=== PATIENT | female | born 1990 | race African-American/Black ===

== ENCOUNTER 2022-11-22 15:52 | Outpatient (REF) | payer OTHER, SELFPAY ==
[2022-11-23 12:38] LABS: BV Int Neg Control Negative (Negative)
[2022-11-23 12:39] LABS: BV Int Pos Control Positive (Positive)
== END 2022-11-22 15:53 | disposition home or self-care (01) ==
LOC: HO.CHCLNP 15:52
PROVIDERS: Visit Provider General Practice
DX: N76.0 Acute vaginitis (principal)
CPT/HCPCS: 87480; 87510; 87660

== ENCOUNTER 2023-01-09 08:25 | Outpatient (REF) | payer OTHER, SELFPAY ==
[2023-01-09 15:00] LABS: Appearance Urine Turbid; Color Urine Dark Yellow; Glucose Urine UA Negative (Negative); Leukocyte Esterase Urine Negative (Negative); Nitrite Urine Negative (Negative); Specific Gravity - Urine >= 1.030 (1.005-1.025); UMIC TRIGGER UA YES; Urine Blood Small (1+) (Negative); Urine Ketones Trace mg/dL (Negative); Urine Protein 30 (1+) mg/dL (Neg-Trace)
[2023-01-09 15:12] LABS: Bacteria Urine 2+ (None Seen); Hyaline Casts Urine 0-2 /LPF (0-2); Squamous Epithelial Cell Urine >20 /HPF (0-2); WBC Urine 0-5 /HPF (0-5)
== END 2023-01-09 08:26 | disposition home or self-care (01) ==
LOC: HO.CHCLDS 08:25
PROVIDERS: Visit Provider General Practice
DX: N76.0 Acute vaginitis (principal)
CPT/HCPCS: 81001; 81003; 87086

== ENCOUNTER 2023-04-18 13:33 | Outpatient (REF) | payer OTHER, SELFPAY ==
[2023-04-18 17:13] LABS: CT PCR NOT DETECTED (Not Detect.); NG PCR NOT DETECTED (Not Detect.)
[2023-04-19 13:07] LABS: BV Int Neg Control Negative (Negative); BV Int Pos Control Positive (Positive)
== END 2023-04-18 13:34 | disposition home or self-care (01) ==
LOC: HO.CHCLNP 13:33
PROVIDERS: Visit Provider Pediatrics
DX: I10 Essential (primary) hypertension (principal); N76.0 Acute vaginitis
CPT/HCPCS: 0353U; 87480; 87510; 87660

== ENCOUNTER 2024-12-26 14:16 | Outpatient (REF) | payer MEDICAID, SELFPAY ==
[2024-12-26 16:00] LABS: Bacterial Vaginosis PCR NEGATIVE (Negative); Candida Group PCR DETECTED (Not Detect); Candida glab krusei PCR NOT DETECTED (Not Detect); Trichomonas vaginalis PCR NOT DETECTED (Not Detect)
[2024-12-26 17:57] LABS: CT PCR Urine NOT DETECTED (Not Detect.); NG PCR Urine NOT DETECTED (Not Detect.)
== END 2024-12-26 14:17 | disposition home or self-care (01) ==
LOC: HO.CHCLNP 14:16
PROVIDERS: Visit Provider Pediatrics
DX: I10 Essential (primary) hypertension (principal)
CPT/HCPCS: 81515; 87491; 87591

== ENCOUNTER 2025-03-10 16:18 | Outpatient (REF) | payer MEDICAID, SELFPAY ==
--- OUTSIDE RECORDS SUMMARY | 2025-03-10 11:30 | XMS_ITS | Encounter Summary ---
Author Organization [employer] Address [address] [address] [facility] [place] [address] Care Team Providers Care Environmental Journalist Name Role Phone Nedra Welch MD Primary Care Provider [phone] Reason for Visit * Reason Comments Vaginal Discharge Encounter Details Date Type Department Care Team ([facility] st Contact Info) Description 03/10/2025 11:30 AM EDT Office Visit [facility] [address] [place], [place] [phone] Tammy Lobo MD [address] [place] [address] Acute vaginitis (Primary Dx); Primary hypertension; Epigastric pain; Urine leukocytes Social History Tobacco Use Types Packs/Day Years Used Date Smoking Tobacco: Never Smokeless Tobacco: Never Depression Answer Date Recorded Patient Health Questionnaire-9 Score 5 09/12/2022 Housing Stability Answer Date Recorded What is your housing situation today? I have jordan mittal 03/12/[address] you li ve. Do you have problems with any of the following? None of the above 03/12/2023 Food Insecurity Answer Date Recorded Within the past 12 months, y ou worried that your food would run out before you got money to buy more: Never True 03/12/2023 Within the past 12 months,th e food you bought just didn't last and you didn't have enough money to get more: Never True Transportation Answer Date Recorded In the past 12 months, has l ack of transportation kept you from medical appts, meetings, work or from getting things needed for daily living? No 03/12/2023 Utilities Answer Date Recorded In the past 12 months, has t he electric, gas, oil or water ev-social threatened to shut off services in your home? No 03/12/2023 Depression Answer Date Recorded Patient Health Questionnaire-2 Score 2 09/12/2022 Comments No Sex and Gender Information Value Date Recorded Sex Assigned at Female 03/13/2022 10:36 AM EDT Legal Sex Female 10:36 AM EDT Gender Identity Female 03/13/2022 10:36 AM EDT Sexual Orientation Straight 03/13/2022 10 :36 AM EDT documented as of this encounter Last Filed Vital Signs Vital Sign Reading Time Taken Comments Blood Pressure 142/100 03/10/2025 11:57 AM EDT Pulse 70 03/10/2025 11:57 AM EDT Temperature 36.5 C (97.7 F) 03/10/2025 11:57 AM EDT Respiratory Rate 12 03/10/2025 11:57 AM EDT Oxygen Saturation - - Inhaled Oxygen Concentration - - Weight 92.1 kg (203 lb) 03/10/2025 11:57 AM EDT Height 172.7 cm (5' 8 ) 03/10/2025 11:57 AM EDT Body Mass Index 30.87 03/10/2025 11:57 AM EDT documented in this encounter Progress Notes * Tammy Lobo MD - 03/10/2025 11:30 AM EDT SUBJECTIVE: Stefano Hammond is a 35 y.o. year old female who presents for sick visit/vag discharge. Denies recentillness, injury, or hospitalization. This note was drafted using Ambient (AI) technology. The patient/patient's guardian has been informed and has consented to the use of this technology: Yes Acute Concerns: Vaginal Discharge and Itching Experienced thick, white, cottage cheese-like vaginal discharge with associated itching x1w. worsened with increased discharge and discomfort for the past 2 days. Menstrual Irregularity LMP started 03/08/2025, previous menstruation was on February 16, 2025, earlier than expected. This was the first period following an last month. No prior history of similar episodes in the past. Abdominal Pain Reported severe upper abdominal pain on and off x 3 days, symptoms last 1 to 2 hours, are relieved after taking Tylenol. Denies fever, chills, nausea, or vomiting associated with the pain. No postprandial pain. She is not taking any new medications at this time, she stopped taking MVIs and iron pills approximately 1 month ago. 4. Hypertension Previously prescribed Procardia for hypertension, Last took Procardia approximately one month ago, stopped it after was terminated. Not currently taking any antihypertensive medication Social History Social History Narrative Not on file Problem List[1] Family History[2] Review of Systems Constitutional: Negative for chills, fatigue and fever. HENT: Negative for congestion, ear pain, nosebleeds, rhinorrhea, sinus pressure, sore throat and trouble swallowing. Eyes: Negative for pain and discharge. Respiratory: Negative for cough, chest tightness and shortness of breath. Cardiovascular: Negative for chest pain, palpitations and leg swelling. Gastrointestinal: Positive for abdominal pain. Negative for blood in stool, constipation, diarrhea and nausea. Endocrine: Negative for polydipsia and polyuria. Genitourinary: Positive for vaginal discharge. Negative for dysuria, frequency, genital sores and pelvic pain. Musculoskeletal: Negative for back pain and neck pain. Skin: Negative for rash. Allergic/Immunologic: Negative for environmental allergies. Neurological: Negative for dizziness, seizures, weakness, light-headedness and headaches. Hematological: Negative for adenopathy. Psychiatric/Behavioral: Negative for agitation, behavioral problems, self-injury and suicidal ideas. OBJECTIVE: Vitals: 03/10/25 1157 BP: (!) 142/100 Pulse: 70 Resp: 12 Temp: 97.7 ??F (36.5 ??C) Physical Exam HENT: Right Ear: Tympanic membrane and ear canal normal. Left Ear: Tympanic membrane and ear canal normal. Mouth/Throat: Mouth: Mucous membranes are moist. Pharynx: No oropharyngeal exudate or posterior oropharyngeal erythema. Eyes: Pupils: Pupils are equal, round, and reactive to light. Cardiovascular: Rate and Rhythm: Regular rhythm. Pulses: Normal pulses. Heart sounds: Normal heart sounds. No murmur heard. Pulmonary: Breath sounds: Normal breath sounds. Abdominal: General: Bowel sounds are normal. Palpations: Abdomen is soft. Tenderness: There is abdominal tenderness in the epigastric area and periumbilical area. Musculoskeletal: General: Normal range of motion. Cervical back: Neck supple. Skin: General: Skin is warm. Neurological: General: No focal deficit present. Mental Status: She is alert and oriented to person, place, and time. Psychiatric: Mood and Affect: Mood normal. Behavior: Behavior normal. Office Visit on 03/10/2025 Component Date Value Ref Range Status Color, UA 03/10/2025 Polo Final Clarity, UA 03/10/2025 Clear Final Glucose, UA 03/10/2025 Negative Final Bilirubin, UA 03/10/2025 Negative Final Ketones, UA 03/10/2025 Negative Final Spec Grav, UA 03/10/2025 1.030 Final Blood, UA 03/10/2025 Positive (A) Negative, None Detected Final large pH, UA 03/10/2025 6.0 Final Protein, UA 03/10/2025 Trace Final 100 mg/dL Urobilinogen, UA 03/10/2025 0.2 Final Leukocytes, UA 03/10/2025 Trace Negative, Rare, Trace Final Nitrite, UA 03/10/2025 Negative Negative, None Detected Final Appearance, UA 03/10/2025 pink Final QC Media Lot # 03/10/2025 [id number] Final Lot# Expiration Date 03/10/2025 [id number] Final Problem List Items Addressed This Visit Acute vaginitis - Primary -Probably vaginal candidiasis. Rx Diflucan x 1 dose - I will not order BV swab given patient's menstrual bleeding at this time. -If symptoms persist after current treatment and urine cultures are negative, will initiate treatment for bacterial vaginosis. Follow-up results of STI testing Relevant Orders POCT Urinalysis (Completed) Chlamydia/Trichomonas/Neisseria gonorrhoeae, PCR, Urine Primary hypertension - Uncontrolled, she is off medications x 1 month. - Restarted amlodipine 10 mg, instructed to take half a tablet for 2-3 days, then increase to full tablet if no S/S hypotension. - Scheduled follow-up blood pressure check with nurse in 2-3 weeks. Advised daily home blood pressure monitoring and to bring readings to next appointment. -Follow-up with primary care provider in 6 to 8 weeks. Relevant Medications amLODIPine (Norvasc) 10 MG tablet Epigastric pain - Epigastric pain likely due to ?gastritis, ? GERD. - Prescribed sucralfate x 1 to 2 weeks only. Advised to follow up with primary care provider if pain persists. Relevant Medications sucralfate (Carafate) 1 g tablet Other Visit Diagnoses Urine leukocytes Order urine culture, rule out UTI. Relevant Orders Urinalysis, Complete, with Reflex to Culture Follow Up: Medications Ordered Prior to Encounter[3] [1] Patient Active Problem List Diagnosis Anemia Beta thalassemia trait Herpes simplex virus (HSV) infection Severe pre-eclampsia Primary hypertension Mild depression Asymptomatic microscopic hematuria Acute vaginitis Epigastric pain [2] Family History Problem Relation Name Age of Onset Hypertension Mother Hypertension Father [3] Current Outpatient Medications on File Prior to Visit Medication Sig Dispense Refill ascorbic acid (Vitamin C) 100 MG tablet Take 1 tablet by mouth Once daily. Fe Tabs 325 (65 Fe) MG EC tablet Take 1 tablet (325 mg) by mouth 3 (three) times a week. Take with 4 oz of orange juice. Do not crush, chew, or split. 30 tablet 3 NIFEdipine XL (Procardia XL) 30 MG 24 hr tablet Take 1 tablet (30 mg) by mouth Once per day. Do notcrush, chew, or split. 30 tablet 5 Vit-Fe Fumarate-FA ( Vitamins) 28-0.8 MG tablet Take 1 tablet by mouth Once per day. (Patient not taking: Reported on 03/10/2025) 90 tablet 3 No current facility-administered medications on file prior to visit. documented in this encounter Miscellaneous Notes * Assessment & Plan Note - Tammy Lobo MD - 03/10/2025 2:37 PM EDT Associated Problem(s): Epigastric pain - Epigastric pain likely due to ?gastritis, ? GERD. - Prescribed sucralfate x 1 to 2 weeks only. Advised to follow up with primary care provider if pain persists. * Assessment & Plan Note - Tammy Lobo MD - 03/10/2025 2:36 PM EDT Associated Problem(s): Primary hypertension - Uncontrolled, she is off medications x 1 month. - Restarted amlodipine 10 mg, instructed to take half a tablet for 2-3 days, then increase to full tablet if no S/S hypotension. - Scheduled follow-up blood pressure check with nurse in 2-3 weeks. Advised daily home blood pressure monitoring and to bring readings to next appointment. -Follow-up with primary care provider in 6 to 8 weeks. * Assessment & Plan Note - Tammy Lobo MD - 03/10/2025 2:34 PM EDT Associated Problem(s): Acute vaginitis -Probably vaginal candidiasis. Rx Diflucan x 1 dose - I will not order BV swab given patient's menstrual bleeding at this time. -If symptoms persist after current treatment and urine cultures are negative, will initiate treatment for bacterial vaginosis. Follow-up results of STI testing documented in this encounter Plan of Treatment Upcoming Encounters Date Type Department Care Team (Late st Contact Info) Description 04/03/2025 10:00 AM EST Clinical Support [facility] [address] [place] [address] 04/21/2025 9:00 AM EST Office Visit [facility] [address] [place] [address] Nedra Welch MD [address] [place] [address] Scheduled Orders Name Type Priority Associated Diagnoses Orde r Schedule Urinalysis, Complete, with Reflex to Culture Lab Routine Urine leukocytes Expected: 03/10/2025 (Approximate), Expires: 03/10/2026 Chlamydia/Trichomonas/Nei sseria gonorrhoeae, PCR, Urine Lab Routine Acute vaginitis Expected: 03/10/2025 (Approximate), Expires: 03/10/2026 documented as of this encounter Procedures Procedure Name Priority Date/Time Associated Diagnosis Comments POCT URINALYSIS DIPSTICK Routine 03/10/2025 12:18 PM EDT Acute vaginitis documented in this encounter Results * (ABNORMAL) POCT Urinalysis (03/10/2025 12:18 PM EDT) Color, UA Polo Clarity, UA Clear Glucose, UA Negative Bilirubin, UA Negative Ketones, UA Negative Spec Grav, UA 1.030 Blood, UA Positive(A) Negative, None Detected Comment:large pH, UA 6.0 Protein, UA Trace Comment:100 mg/dL Urobilinogen, UA 0.2 Leukocytes, UA Trace Negative, Rare, Trace Nitrite, UA Negative Negative, None Detected Appearance, UA pink QC Media Lot # [id number] Lot# Expiration Date Urine (Urine, Random) 03/10/2025 12:18 PM EDT Tammy Lobo MD POINT OF CARE TEST ENTER /EDIT ORDERABLES Final Result documented in this encounter Visit Diagnoses Diagnosis Acute vaginitis- Primary Unspecified vaginitis and vulvovaginitis Primary hypertension Unspecified essential hypertension Epigastric pain Abdominal pain, epigastric Urine leukocytes Other nonspecific finding on examination of urine documented in this encounter Additional Health Concerns Assessment Noted Time PHQ-9 Depression Total Score: 5 09/13/19 23 11:55 AM EDT documented as of this encounter Care Teams Environmental Journalist Relationship Specialty Start Date End Date Nedra Welch MD [address] [place] [id number] PCP - General Internal Medicine 06/12/23 documented as of this encounter
[2025-03-10 18:36] LABS: CT PCR Urine NOT DETECTED (Not Detect.); NG PCR Urine NOT DETECTED (Not Detect.)
--- OUTSIDE RECORDS SUMMARY | 2025-03-10 20:10 | XMS_ITS | Clinical Summary ---
Author Organization [facility] ity Address [address] [place] [address] Care Team Providers Care Head Mixer Name Role Phone Sheila Avilez Primary Care Provider Surgical History Surgery Date Site/Laterality Comments OTHER SURGICAL HISTORY PROCEDURE: DENIES PREVIOUS SURGERY Medical History Medical History Date Comments Herpes simplex type 2 infection DX:Herpes simplex type 2 infection Family History Medical History Relation Name Comments Hypertension Maternal Grandmother Other cancer Other 1 fathers side Relation Name Status Comments Maternal Grandmother Other 1 Other 2 Social History Tobacco Use Types Packs/Day Years Used Date Smoking Tobacco: Former Smokeless Tobacco: Never Alcohol Use Standard Drinks/Week Comments Yes 0 (1 standard drink = 0.6 oz pur e alcohol) Comments Unknown Sex and Gender Information Value Date Recorded Sex Assigned at Not on file Legal Sex Female 2:23 AM EST Gender Identity Not on file Sexual Orientation Not on file Obstetrics History Plan of Treatment Health Maintenance Due Date Last Done Comments DTaP,Tdap,and Td Vaccines (1 - Tdap) 2009 Hepatitis B Vaccines (1 of 3 - 19+ 3-dose series) 2009 Cervical Cancer Screening: P ap Smear 2011 HPV Vaccines (1 - 3-dose SCD M series) 2017 Depression Screening 05/14/2024 COVID-19 Vaccine ( - 2023-2 5 season) 2025 Influenza Vaccine (#1) 2025 RSV Immunization Adult Patie nts (1 - 1-dose 75+ series) 2065 HIB Vaccines Aged Out No longer eligi ble based on patient's age to complete this topic Hepatitis A Vaccines Aged Out No long er eligible based on patient's age to complete this topic IPV Vaccines Aged Out No longer eligi ble based on patient's age to complete this topic MMR Vaccines Aged Out No longer eligi ble based on patient's age to complete this topic Meningococcal ACWY Vaccine Aged Out N o longer eligible based on patient's age to complete this topic Meningococcal B Vaccine Aged Out No l onger eligible based on patient's age to complete this topic Pneumococcal Vaccine: Pediat rics (0 to 5 Years) and At-Risk Patients (6 to 49 Years) Aged Out No longer eligible b ased on patient's age to complete this topic RSV Immunization Patients Un christine 20 months Aged Out No longer eligible b ased on patient's age to complete this topic Varicella Vaccines Aged Out No longer eligible based on patient's age to complete this topic Care Teams Head Mixer Relationship Specialty Start Date End Date Sheila Avilez DO [address] [place] [address] [place] [address] PCP - General 04/20/15
--- OUTSIDE RECORDS SUMMARY | 2025-03-10 20:10 | XMS_ITS | Encounter Summary ---
Author Organization [employer] Address [address] [facility] [place] [address] Care Team Providers Care Char Puller Name Role Phone Nedra Welch MD Primary Care Provider [phone] Encounter Details Date Type Department Care Team ([facility] st Contact Info) Description 03/10/2025 Orders Only [facility] [address] [place], [place] [phone] Tammy Lobo MD [address] [place], [place] [phone] Social History Tobacco Use Types Packs/Day Years Used Date Smoking Tobacco: Never Smokeless Tobacco: Never Depression Answer Date Recorded Patient Health Questionnaire-9 Score 5 09/12/2022 Housing Stability Answer Date Recorded What is your housing situation today? I have jordanang mittal 03/12/[address] you [...] t he electric, gas, oil or water company threatened to shut off services in your home? No 03/12/2023 Depression Answer Date Recorded Patient Health Questionnaire-2 Score 2 09/12/2022 Comments No Sex and Gender Information Value Date Recorded Sex Assigned at Female 03/13/2022 10:36 AM EDT Legal Sex Female 10:36 AM EDT Gender Identity Female 03/13/2022 10:36 AM EDT Sexual Orientation Straight 03/13/2022 10 :36 AM EDT documented as of this encounter Plan of Treatment Upcoming Encounters Date Type Department Care Team ([facility] st Contact Info) Description 04/03/2025 10:00 AM EST Clinical Support [facility] [address] [place] [address] 04/21/2025 9:00 AM EST Office Visit [facility] [address] [place] [address] Nedra Welch MD [address] [place] [address] documented as of this encounter Procedures Procedure Name Priority Date/Time Associated Diagnosis Comments CHLAMYDIA/TRICHOMON /NEISSERIA GONORRHOEAE, PCR, URINE Routine 03/10/2025 12:27 PM EDT documented in this encounter Results * Chlamydia/Trichomonas/Neisseria gonorrhoeae, PCR, Urine (03/10/2025 12:27 PM EDT) CT PCR, Urine NOT DETECTED Not Detect. [facility] Comment:A not detected test result does not exclude the possibilityof infection because test results can be affected byimproper specimen collection, concurrent antibiotic therapy,or the number of organisms in the specimen which may bebelow the sensitivity of the test. As with many diagnostictests, results from the Xpert CT/NG assay should beinterpreted in conjunction with other laboratory andclinical data available to the clinician.The Xpert CT/NG assay should not be used for the evaluationof suspected sexual abuse or for other medico-legalindications. Additional testing is recommended in anycircumstance when false positive or false negative resultscould lead to adverse medical, social or psychologicalconsequences. NG PCR, Urine NOT DETECTED Not Detect. [facility] Comment:A not detected test result does not exclude the possibilityof infection because test results can be affected byimproper specimen collection, concurrent antibiotic therapy,or the number of organisms in the specimen which may bebelow the sensitivity of the test. As with many diagnostictests, results from the Xpert CT/NG assay should beinterpreted in conjunction with other laboratory andclinical data available to the clinician.The Xpert CT/NG assay should not be used for the evaluationof suspected sexual abuse or for other medico-legalindications. Additional testing is recommended in anycircumstance when false positive or false negative resultscould lead to adverse medical, social or psychologicalconsequences. 03/10/2025 12:2 7 PM EDT 03/10/2025 4:19 PM EDT us Tammy Lobo MD LAB URINE ORDERABLES Fin al Result [facility] [address] [place] [address] [phone] documented in this encounter Visit Diagnoses Not on filedocumented in this encounter Additional Health Concerns Assessment Noted Time PHQ-9 Depression Total Score: 5 09/13/19 23 11:55 AM EDT documented as of this encounter Care Teams Char Puller Relationship Specialty Start Date End Date Nedra Welch MD [address] [place] [address] PCP - General Internal Medicine 06/12/23 documented as of this encounter
--- OUTSIDE RECORDS SUMMARY | 2025-03-10 20:10 | XMS_ITS | Clinical Summary ---
Author Organization [employer] Address [address] [facility] 7t [place] [address] Care Team Providers Care Mortgage Loan Officer Originator Name Role Phone Nedra Welch MD Primary Care Provider [phone] Allergies No known active allergies Medications * This document contains information received from the source organization and may not represent a complete record from that organization. ascorbic acid (Vitamin C) 100 MG tablet Take 1 tablet by mouth Once daily. 2 Active Vit-Fe Fumarate-FA ( Vitamins) 28-0.8 MG tabletIndication s:Family Planning Take 1 tablet by mouth Once per day. 90 tablet 3 5 12/27/19 26 Active Additional Information Patient not taking.Reason: pt is not anymore, Reported on 03/10/2025 NIFEdipine XL (Procardia XL) 30 MG 24 hr tabletIndication s:Primary hypertension Take 1 tablet (30 mg) by mouth Once per day. Do not crush, chew, or split. 30 tablet 5 5 12/27/19 26 Active Fe Tabs 325 (65 Fe) MG EC tabletIndication s:Iron deficiency anemia due to chronic blood loss Take 1 tablet (325 mg) by mouth 3 (three) times a week. Take with 4 oz of orange juice. Do not crush, chew, or split. 30 tablet 3 5 Active fluconazole (Diflucan) 150 MG tablet Take 1 tablet (150 mg) by mouth 1 (one) time for 1 dose. 1 tablet 5 03/10/20 25 Active amLODIPine (Norvasc) 10 MG tablet Take 1 tablet (10 mg) by mouth Once per day. 90 tablet 3 5 03/10/20 26 Active sucralfate (Carafate) 1 g tablet Take 1 tablet (1 g) by mouth before breakfast, before lunch, before evening meal, and at bedtime for 14 days. 56 tablet 5 03/24/20 25 Active Active Problems Problem Noted Date Diagnosed Date Acute vaginitis 03/10/2025 Assessment & Plan (03/10/2025 2:34 PM EDT): -Probably vaginal candidiasis. Rx Diflucan x 1 dose - I will not order BV swab given patient's menstrual bleeding at this time. -If symptoms persist after current treatment and urine cultures are negative, will initiate treatment for bacterial vaginosis. Follow-up results of STI testing Epigastric pain 03/10/2025 Assessment & Plan (03/10/2025 2:37 PM EDT): - Epigastric pain likely due to ?gastritis, ? GERD. - Prescribed sucralfate x 1 to 2 weeks only. Advised to follow up with primary care provider if pain persists. Asymptomatic microscopic hematuria 01/16/2023 Assessment & Plan (01/16/2023 10:07 PM EDT): Patient with >2 urine results with evidence of microscopic hematuria, will refer to urology for further evaluation. Mild depression 09/12/2022 Primary hypertension 05/31/2022 Assessment & Plan (03/10/2025 2:36 PM EDT): - Uncontrolled, she is off medications x [...] care provider in 6 to 8 weeks. Assessment & Plan (05/31/2022 9:17 AM EST): Controlled bp results as follow 128/84-147/96-124/88-133/94-127/61-121/81- 115/82 No changes will be made, encouraged low sodiumd diet and exercise. New lab order will be placed. Anemia 05/26/2022 Assessment & Plan (05/31/2022 9:17 AM EST): Will order new labs for guidance of therapy Beta thalassemia trait 05/26/2022 Herpes simplex virus (HSV) infection 05/26/2022 Overview (05/26/2022): Per [facility] chart Severe pre-eclampsia 05/26/2022 Overview (05/26/2022): History of severe pre-eclampsia per [facility] chart; Resolved Problems Problem Noted Date Diagnosed Date Resolved Date Vaginal discharge during pre gnancy in first trimester 03/10/2025 03/10/2025 Encounters Date Type Department Care Team Description 03/10/2025 11:30 AM EDT Office Visit [facility] [address] [place] [phone] Tammy Lobo MD Acute vaginitis (Primary Dx); Primary hypertension; Epigastric pain; Urine leukocytes 03/10/2025 Orders Only [facility] [address] [place] [address] Tammy Lobo MD 03/10/2025 Travel 03/09/2025 Telephone [facility] [address] [place] [phone] Tammy Lobo MD CHART PREP 03/09/2025 Telephone [facility] [address] [place] [address] Nedra Welch MD Nurse Triage 01/23/2025 Telephone [facility] [address] [place] [address] Nedra Welch MD no show 01/08/2025 Travel 12/29/2024 Telephone [facility] [address] [place] [address] Nedra Welch MD 12/29/2024 Results Follow-Up [facility] [address] [place] [address] Nedra Welch MD POCT Urine , Bacterial Vaginosis Panel, Chlamydia/N. Gonorrhoeae, PCR, Urine 12/29/2024 Orders Only [facility] [address] [place] [address] Nedra Welch MD 12/29/2024 Orders Only [facility] [address] [place] [address] Nedra Welch MD Early stage of (Primary Dx); Primary hypertension; Beta thalassemia trait 12/26/2024 11:15 AM EDT Office Visit [facility] [address] [place] [address] Nedra Welch MD Primary hypertension (Primary Dx); Iron deficiency anemia due to chronic blood loss; Early stage of ; Chronic vaginitis 12/26/2024 Travel 12/24/2024 Telephone [facility] [address] [place], [place] [phone] Nedra Welch MD Nurse Triage from Last 3 Months Immunizations Immunization Administration Dates Next Due Influenza injectable quadriv alent IIV4 with preservative 03/31/2020,05/29/2019 Influenza injectable quadriv alent preservative free 04/18/2023,04/21/2022,02/28/2021 Influenza, IIV3, injectable 02/23/2017,0 05/21/2014,01/31/2013,2011,03/08/2011,03/02/2010 Td (adult), unspecified 02/23/2017 Tdap 08/01/2012 Family History Medical History Relation Name Comments Hypertension Father Hypertension Mother Relation Name Status Comments Father Alive Mother Alive Social History Tobacco Use Types Packs/Day Years Used Date Smoking Tobacco: Never Smokeless Tobacco: Never Tobacco Cessation:Counseling Given: No Depression Answer Date Recorded Patient Health Questionnaire-9 [...] the past 12 months, has t he [employer], gas, oil or water company threatened to shut off services in your home? No 03/12/2023 Depression Answer Date Recorded Patient Health Questionnaire-2 Score 2 09/12/2022 Comments No Sex and Gender Information Value Date Recorded Sex Assigned at Female 03/13/2022 10:36 AM EDT Legal Sex Female 10:36 AM EDT Gender Identity Female 03/13/2022 10:36 AM EDT Sexual Orientation Straight 03/13/2022 10 :36 AM EDT Last Filed Vital Signs Vital Sign Reading Time Taken Comments Blood Pressure 142/100 03/10/2025 11:57 AM EDT Pulse 70 03/10/2025 11:57 AM EDT Temperature 36.5 C (97.7 F) 03/10/2025 11:57 AM EDT Respiratory Rate 12 03/10/2025 11:57 AM EDT Oxygen Saturation 95% 06/12/2023 9:22 AM EST Inhaled Oxygen Concentration - - Weight 92.1 kg (203 lb) 03/10/2025 11:57 AM EDT Height 172.7 cm (5' 8 ) 03/10/2025 11:57 AM EDT Body Mass Index 30.87 03/10/2025 11:57 AM EDT Plan of Treatment Upcoming Encounters Date Type Department Care Team (Late st Contact Info) Description 04/03/2025 10:00 AM EST Clinical Support [facility] [address] [place] [address] 04/21/2025 9:00 AM EST Office Visit [facility] [address] [place] [address] Nedra Welch MD [address] [place] [address] Health Maintenance Due Date Last Done Comments Alcohol/Substance Use Screening 2002 Family Planning (PISQ) 2005 HPV Vaccines (1 - 3-dose series) 2005 Hepatitis B Vaccines (1 of 3 - 19+ 3-dose series) 2009 Depression Screening 09/13/2023 09/12/2022, 09/13/19 SDOH Screening 06/01/2024 06/01/2023 COVID-19 Vaccine (3 - season) 2025 09/09/2020, 08/04/2020 Influenza Vaccine (#1) 2025 , 04/21/2022, 02/28/2021, Additional history exists Disability Screening 01/08/2026 01/08/2025 Tobacco Screening 03/10/2026 03/10/2025 Lipid Panel 10/18/2026 10/18/2021 Cervical Cancer Screening 12/27/2026 HPV/Cotest 12/27/2026 12/27/2021 Pap Smear 12/27/2026 12/27/2021 DTaP/Tdap/Td Vaccines (3 - Td or Tdap) 02/23/2027 02/23/2017, 08/01/2012 Zoster Vaccines (1 of 2) 02/21/2040 RSV Patients and Patients Aged 60 years or older (1 - 1-dose 75+ series) 2065 HIV Screening Completed 05/29/2019 Hepatitis C Screening Completed 10/18/2021 HIB Vaccines Aged Out No longer eligi [...] patient's age to complete this topic Meningococcal Vaccine Aged Out No yesica chasidy eligible based on patient's age to complete this topic Pneumococcal Vaccine: Pediatrics (0 to 5 Years) and At-Risk Patients (6 to 49) Years Aged Out No longer eligible based on patient's age to complete this topic RSV under 20 months Aged Out No longe r eligible based on patient's age to complete this topic Rotavirus Vaccines Aged Out No longer eligible based on patient's age to complete this topic Procedures Procedure Name Priority Date/Time Associated Diagnosis Comments CHLAMYDIA/TRICHOMONA S/NEISSERIA GONORRHOEAE, PCR, URINE Routine 03/10/2025 12:27 PM EDT POCT URINALYSIS DIPSTICK Routine 03/10/2025 12:18 PM EDT Acute vaginitis POCT , URINE Routine 12/26/2024 11:59 AM EDT Early stage of CHLAMYDIA/TRICHOMONA S/NEISSERIA GONORRHOEAE, PCR, URINE Routine 12/26/2024 11:45 AM EDT Primary hypertension BACTERIAL VAGINOSIS PANEL Routine 12/26/2024 11:45 AM EDT Primary hypertension THINPREP IMAGING PAP AND HPV MRNA E6/E7, WITH CT/NG, TRICHOMONAS Routine 12/27/2021 2:09 PM EDT ZZZ HISTORICAL HEPATITIS C AB W/REFL TO HCV RNA, QN, PCR Routine 10/18/2021 8:44 AM EDT LIPID PANEL, STANDARD Routine 10/18/2021 8:44 AM EDT ZZZ HISTORICAL HIV AB/AG Routine 05/29/2019 10:03 AM EST from Last 3 Months or Most Recently Relevant to Health Maintenance Results * Chlamydia/Trichomonas/Neisseria gonorrhoeae, PCR, Urine (03/10/2025 12:27 PM EDT) Only the most recent of2 resultswithin the time period is included. CT PCR, Urine NOT DETECTED Not Detect. [facility] Comment:A not detected test result [...] NG PCR, Urine NOT DETECTED Not Detect. [facility] Comment:A not detected test result [...] MD LAB URINE ORDERABLES Fin al Result [facility] [address] [place] [phone] * (ABNORMAL) POCT Urinalysis (03/10/2025 12:18 PM EDT) Color, UA [place] Clarity, UA Clear Glucose, UA Negative Bilirubin, UA Negative Ketones, UA Negative Spec Grav, UA 1.030 Blood, UA Positive(A) Negative, None Detected Comment:large pH, UA 6.0 Protein, UA Trace Comment:100 mg/dL Urobilinogen, UA 0.2 Leukocytes, UA Trace Negative, Rare, Trace Nitrite, UA Negative Negative, None Detected Appearance, UA pink QC Media Lot # [id number] Lot# Expiration Date [id number] Urine (Urine, Random) 03/10/2025 12:18 PM EDT Tammy Lobo MD POINT OF CARE TEST ENTER /EDIT ORDERABLES Final Result * (ABNORMAL) POCT Urine (12/26/2024 11:59 AM EDT) Preg Test, Ur Positive (A) Negative, Indeterminate, None Detected, Invalid, Specimen unsatisfactory for evaluation, Weakly Positive, 2+ QC Media Lot # [id number] Lot# Expiration Date [id number] Urine 12/26/2024 11:5 9 AM EDT Result [facility] Nedra Welch MD POINT OF CARE TEST ENTER/EDIT ORDERABLES Final Result * (ABNORMAL) Bacterial Vaginosis Panel (12/26/2024 11:45 AM EDT) TRICHOMONAS VAGINALIS DETECTION BY PCR NOT DETECTED Not Detect [facility] BACTERIAL VAGINOSIS DETECTION BY PCR NEGATIVE Negative [facility] Comment:The BV organism targ ets of the Xpert Xpress MVP test can becommensal in women; Xpert Xpress MVP positive results forbacterial vaginosis should be considered in conjunction withother clinical and patient information to determine thedisease status. Organisms that are not detected by the XpertXpress MVP test have also been reported to be associatedwith BV and aerobic vaginitis.The Xpert Xpress MVP test performance has not been evaluatedin patients under the age of 14. CHUYITA GROUP DETECTION BY PCR DETECTED(A) Not Detect [facility] Chuyita glab krusei PCR NOT DETECTED Not Detect [facility] Swab Vaginal structure / Unknown 12/26/2024 11:45 AM EDT 12/26/2024 2:17 PM EDT Nedra Welch MD LAB MICROBIOLOGY - GENERAL OR DERABLES Final Result [facility] [address] [place] [phone] * THINPREP TIS PAP AND HPV mRNA E6/E7, CT/NG, TRICH (12/27/2021 2:09 PM EDT) Chlamydia trachomatis RNA, TMA, Urogenital NOT DETECTED NOT DETECTED [facility] Clinical Information: None given [facility] COMMENT SEE COMMENT [facility] Comment: The analytical performance characteristics of this assay, when used to test SurePath(TM) specimens have been determined by [email or web address]. The modifications have not been cleared or approved by the FDA. This assay has been validated pursuant to the CLIA regulations and is used for clinical purposes. For additional information, please refer to https://Wibiya.La Miu/faq/VNH869 (This link is being provided for information/ educational purposes only.) COMMENT SEE COMMENT [facility] Comment: EXPLANATORY NOTE: The Pap is a screening test for cervical cancer. It is not a diagnostic test and is subject to false negative and false positive results. It is most reliable when a satisfactory sample, regularly obtained, is submitted with relevant clinical findings and history, and when the Pap result is evaluated along with historic and current clinical information. COMMENT: This Pap test has been evaluated with computer assisted technology. [facility] Pan Pusher: SEE COMMENT [facility] Comment: SXA, CT(ASCP) CT screening location: [address] [address] HPV nRNA E6/E7 Not Detected Not Detected [facility] Comment: Methodology: Warehouse Material Handler-Mediated Amplification This assay detects E6/E7 viral messenger RNA (mRNA) from 14 high-risk HPV types (16,18,31,33,35,39,45,51,52,56,58,59,66,68). Cervical sources are required for HPV testing. If a vaginal source from a patient who has had a total hysterectomy with removal of cervix was submitted, please contact the testing laboratory for alternative testing options. For additional information, please refer to http://Wibiya.La Miu/faq/MSH836o3 (This link if provided for information/ educational purposes only.) Interpretation/Re sult: Negative for intraepithelial lesion or malignancy. [facility] LMP: 12/16/2021 [facility] Neisseria gonorrhoeae RNA, TMA, Urogenital NOT DETECTED NOT DETECTED [facility] Prev. BX: NONE GIVEN [facility] Prev. PAP: NONE GIVEN [facility] Review Pan Pusher: SEE COMMENT [facility] Comment: CMG, CT(ASCP) CT screening location: [place] [address] SOURCE: None given [facility] Statement Of Adequacy: SEE COMMENT [facility] Comment: Satisfactory for evaluation. Endocervical/transformation zone component present. Trichomonas vaginalis, QL, TMA, PAP Vial NOT DETECTED NOT DETECTED [facility] Comment: The analytical performance characteristics of this assay have been determined by [employer]. The modifications have not been cleared or approved by the FDA. This assay has been validated pursuant to the CLIA regulations and is used for clinical purposes. For additional information, please refer to http://Wibiya.La Miu/ faq/Trichomonastma (This link is being provided for information/ educational purposes only.) 12/27/2021 2:09 PM EDT Esperanza LIU LAB PATHOLOGY ORDERABLES Final Result [facility] [address] * HEPATITIS C AB W/REFL TO HCV RNA, QN, PCR (10/18/2021 8:44 AM EDT) HEPATITIS C ANTIBODY NON-REACT LAINE NON-REACT LAINE [facility] INDEX 0.09 <1.00 [facility] Comment: HCV antibody was non-reactive. There is no laboratory evidence of HCV infection. In most cases, no further action is required. However, if recent HCV exposure is suspected, a test for HCV RNA (test code 80661) is suggested. For additional information please refer to http://education.La Miu/faq/QGX64k4 (This link is being provided for informational/ educational purposes only.) 10/18/2021 8:44 AM EDT Wei Fox MD HISTORICAL/NON ORD ERABLE LABS Final Result Performing Organization Address [facility] de Phone Number [facility] [address] * (ABNORMAL) LIPID PANEL, STANDARD (10/18/2021 8:44 AM EDT) [facility] Chol/HDLC Ratio 2.8 <5.0 (calc) [facility] Cholesterol, Total 129 <200 mg/dL [facility] HDL Cholesterol 46(L) > OR = 50 mg/dL [facility] LDL Cholesterol 67 mg/dL (calc) [facility] Comment: Reference range: <100 Desirable range <100 mg/dL for primary prevention; <70 mg/dL for patients with CHD or diabetic patients with > or = 2 CHD risk factors. LDL-C is now calculated using the Marielos calculation, which is a validated novel method providing better accuracy than the Friedewald equation in the estimation of LDL-C. Mynor SS et al. AZUL. 2013;310(19): 9724-1367 (http://education.Euc[employer]ptus Systems/faq/RQQ721) Non-HDL Cholesterol 83 <130 mg/dL (calc) [facility] Comment: For patients with diabetes plus 1 major ASCVD risk factor, treating to a non-HDL-C goal of <100 mg/dL (LDL-C of <70 mg/dL) is considered a therapeutic option. Triglycerides 79 <150 mg/dL [facility] 10/18/2021 8:44 AM EDT Wei Fox MD LAB BLOOD ORDERABL ES Final Result Performing Organization Address [facility] Co de Phone Number [facility] [address] [place] [address], * HIV AB/AG (05/29/2019 10:03 AM EST) [facility] HIV AG/AB NONREACTIVE NR [facility] Comment: HIV-1 p24 Ag and/or HIV-1/HIV-2 Ab not detected. A test result that is nonreactive does not exclude the possibility of exposure to or infection with HIV-1 and/or HIV-2. Nonreactive results in this assay for individuals with prior exposure to HIV-1 and/or HIV-2 may be due to antigen and antibody levels that are below the limit of detection of this assay. The Bernabe Shell Worker HIV Ag/Ab Combo assay result and supplemental assay results should be interpreted in conjunction with the patient's clinical presentation, history and other laboratory results. If the results are inconsistent with clinical evidence, additional testing is suggested to confirm the result. 05/29/2019 10:0 3 AM EST us Wei Fox MD HISTORICAL/NON ORD ERABLE LABS Final Result [facility] [address] from Last 3 Months or Most Recently Relevant to Health Maintenance Insurance [address] [place], [place] [address] Care Teams Mortgage Loan Officer Originator Relationship Specialty Start Date End Date Nedra Welch MD [address] [place] [phone] PCP - General Internal Medicine 06/12/23
--- OUTSIDE RECORDS SUMMARY | 2025-03-10 20:10 | XMS_ITS | Encounter Summary ---
Author Organization [email or web address] Address [address] [place] [address] Care Team Providers Care Director Operations Broadcast Name Role Phone Nedra Welch MD Primary Care Provider [phone] Reason for Visit * Reason Onset Date Comments CHART PREP 03/09/2025 Encounter Details Date Type Department Care Team ([facility] st Contact Info) Description 03/09/2025 Telephone [facility] [address] [place], [place] [phone] Tammy Lobo MD [address] [place] [address] CHART PREP Social History Tobacco Use Types Packs/Day Years [...] Patient Health Questionnaire-2 Score 2 09/12/2022 Comments Yes Sex and Gender Information Value Date Recorded Sex Assigned at Female 03/13/2022 10:36 AM EDT Legal Sex Female 10:36 AM EDT Gender Identity Female 03/13/2022 10:36 AM EDT Sexual Orientation Straight 03/13/2022 10 :36 AM EDT documented as of this encounter Miscellaneous Notes * Telephone Encounter - Maricruz Fox [place] - 03/09/2025 2:33 PM EDT Chart Prep Labs: done Images: not applicable Referrals: complete Vaccines due: Covid, Flu, Hep B, and HPV Screenings: PISQ Overdue care gaps: SBIRT, SDOH, PHQ-9, LOYD-7, Oral health screening, and Tobacco documented in this encounter Plan of Treatment Upcoming Encounters Date Type Department Care Team (Late st Contact Info) Description 04/03/2025 10:00 AM EST Clinical Support [facility] [address] [place] [address] 04/21/2025 9:00 AM EST Office Visit [facility] [address] [place] [address] Nedra Welch MD [address] [place] [address] documented as of this encounter Visit Diagnoses Not on filedocumented in this encounter Additional Health Concerns Assessment Noted Time PHQ-9 Depression Total Score: 5 09/13/19 23 11:55 AM EDT documented as of this encounter Care Teams Director Operations Broadcast Relationship Specialty Start Date End Date Nedra Welch MD [address] [place] [address] PCP - General Internal Medicine 06/12/23 documented as of this encounter
--- OUTSIDE RECORDS SUMMARY | 2025-03-10 20:10 | XMS_ITS | Encounter Summary ---
Author Organization [employer] Address [address] [place] [address] 7 [place] [address] Care Team Providers Care Scuba Dive Training Instructor Name Role Phone Wei Ross MD Primary Care Prov ider Nedra Welch MD Primary Care Provider Reason for Visit * Reason Comments Med Refill Encounter Details Date Type Department Care Team (Late Contact Info) Description 08/02/2022 Refill [facility] [address] [place] [address] Wei Ross MD [address] [place] [address] Primary hypertension Social History Tobacco Use Types Packs/Day Years Used Date Smoking Tobacco: Never Assessed Comments Unknown Sex and Gender Information Value Date Recorded Sex Assigned at Female 03/13/2022 10:36 AM EDT Legal Sex Female 10:36 AM EDT Gender Identity Female 03/13/2022 10:36 AM EDT Sexual Orientation Straight 03/13/2022 10 :36 AM EDT documented as of this encounter Plan of Treatment Upcoming Encounters Date Type Department Care Team (Late Contact Info) Description 04/03/2025 10:00 AM EST Clinical Support [facility] [address] [place], [place] [phone] 04/21/2025 9:00 AM EST Office Visit [facility] [address] [place] [address] Nedra Welch MD [address] [place] [address] documented as of this encounter Visit Diagnoses Diagnosis Primary hypertension Unspecified essential hypertension documented in this encounter Care Teams Scuba Dive Training Instructor Relationship Specialty Start Date End Date Wei Ross MD [address] [place] [address] PCP - General Internal Medicine 05/29/19 06/11/23 Nedra Welch MD [address] [place] [address] PCP - General Internal Medicine 06/12/23 documented as of this encounter
--- OUTSIDE RECORDS SUMMARY | 2025-03-10 20:10 | XMS_ITS | Encounter Summary ---
Author Organization [employer] Address [address] [facility] 7 [place] [address] Care Team Providers Care Carton Maker Name Role Phone Nedra Welch MD Primary Care Provider [phone] Reason for Visit * Reason Onset Date Comments Nurse Triage 03/09/2025 Encounter Details Date Type Department Care Team ([facility] st Contact Info) Description 03/09/2025 Telephone C [facility] [address] [place] [address] Nedra Welch MD [address] [place] [address] Nurse Triage Social History Tobacco Use Types Packs/Day Years [...] t he electric, gas, oil or water [employer] threatened to shut off services in your [...] encounter Miscellaneous Notes * Telephone Encounter - Miriam Carrasco RN - 03/09/2025 9:50 AM EDT Telephone call to pt who reports thick, white cottage cheese vaginal discharge x1 week, denies fever, abdominal/pelvic pain, odor. Reports increased frequency in urination but denies odor to urine, flank pain, burning sensation. Pt also reports episodes of 10/10 abdominal pain over the last month, not at present, last time waslast weekend, states it occurred in the middle/center of her stomach, was unable to do normal activities, it lasted 5 hrs then pt took Tylenol and it resolved. Denies having had nausea/vomiting, blood in stool, confirmed did eat fatty meal beforehand but does not believe this is common factor. Pt declined appt today, scheduled tomorrow per her request 03/09/[address] Lobo at [facility] to evaluate vaginal discharge and stomach pain. Advised her to seek medical attention sooner if 10/10 abdominal pain returns, is colicky, radiates, she has N/V or cannot eat. Advised to avoid trigger foods in meantime. She is also asking about whether she will be switching her BP medications back to HCTZ+amlodipine, states she was switched to NIFEdipine XL 30mg when she was but she is no longer or . Advised her will send message to PCP to advise, pt verbalized understanding. Protocol Used: Vaginal Discharge (Adult) Protocol-Based Disposition: See in Office or Video Visit within 3 Days Positive Triage Question: * Symptoms of a yeast infection (i.e., itchy, white discharge, not bad smelling) and not improved > 3 days following Care Advice * All higher-acuity triage questions were negative Care Advice Discussed: * Reasons To Call Back - Discharge becomes yellow or green - Discharge becomes foul smelling or itchy - Fever or abdomen pain occur - You become worse * Telephone Encounter - Devynrichy Mary - 03/09/2025 8:23 AM EDT Symptom: Vaginal Symptoms - Not Bleeding Outcome: Schedule an urgent appointment (within 4 hours) or talk to a nurse or provider soon Reason: Foul-smelling vaginal discharge The caller accepted this outcome. Contact pt at [phone] documented in this encounter Plan of Treatment Upcoming Encounters Date Type Department Care Team (Late st Contact Info) Description 04/03/2025 10:00 AM EST Clinical Support [facility] MED & PEDS [address] [place] [address] 04/21/2025 9:00 AM EST Office Visit [facility] [address] [place] [address] Nedra Welch MD [address] [place] [address] documented as of this encounter Visit Diagnoses Not on filedocumented in this encounter Additional Health Concerns Assessment Noted Time PHQ-9 Depression Total Score: 5 09/13/19 23 11:55 AM EDT documented as of this encounter Care Teams Carton Maker Relationship Specialty Start Date End Date Nedra Welch MD [address] [place] [address] PCP - General Internal Medicine 06/12/23 documented as of this encounter
--- OUTSIDE RECORDS SUMMARY | 2025-03-10 20:10 | XMS_ITS | Encounter Summary ---
Author Organization [employer] Address [address] 7[address] [place] [address] Care Team Providers Care Mold Loft Worker Name Role Phone Nedra Welch MD Primary Care Provider [phone] Encounter Details Date Type Department Care Team (Latest Contact Info) Description 03/10/2025 Travel Social History Tobacco Use Types Packs/Day Years [...] Description 04/03/2025 10:00 AM EST Clinical Support [facility] MED & PEDS [address] [place] [address] 04/21/2025 9:00 AM EST Office Visit [facility] MED & PEDS [address] [place] [address] Nedra Welch MD [address] [place] [address] documented as of this encounter Visit Diagnoses Not on filedocumented in this encounter Additional Health Concerns Assessment Noted Time PHQ-9 Depression Total Score: 5 09/13/19 23 11:55 AM EDT documented as of this encounter Care Teams Mold Loft Worker Relationship Specialty Start Date End Date Nedra Welch MD [address] [place] [address] PCP - General Internal Medicine 06/12/23 documented as of this encounter
== END 2025-03-10 16:19 | disposition home or self-care (01) ==
LOC: HO.HHCLNP 16:18
PROVIDERS: Visit Provider Internal Medicine
DX: N76.0 Acute vaginitis (principal); Z20.2 Contact with and (suspected) exposure to infections with a predominantly sexual mode of transmission
CPT/HCPCS: 87491; 87591

== ENCOUNTER 2025-03-19 08:30 | Outpatient (REF) | payer MEDICAID, SELFPAY ==
--- OUTSIDE RECORDS SUMMARY | 2025-03-19 08:57 | XMS_ITS | Encounter Summary ---
Author Organization [employer] Address [address] [place] [address] 7 [place] [address] Care Team Providers Care Kiln Door Builder Name Role Phone Wei Ross MD Primary Care Prov ider Nedra Welch MD Primary Care Provider [phone] Reason for Visit * Reason Comments Med Refill Encounter Details Date Type Department Care Team (Late Contact Info) Description 08/02/[address] [facility] MEDICINE [address] [place] [address] Wei Ross MD [address] [place] [address] Primary hypertension Social History Tobacco Use Types [...] Description 04/03/2025 10:00 AM EST Clinical Support [facility] [address] [place], [place] [phone] 04/21/2025 9:00 AM EST Office Visit [facility] MED & PEDS [address] [place] [address] Nedra Welch MD [address] [place] [address] documented as of this encounter Visit Diagnoses Diagnosis Primary hypertension Unspecified essential hypertension documented in this encounter Care Teams Kiln Door Builder Relationship Specialty Start Date End Date Wei Ross MD [address] [place] [address] PCP - General Internal Medicine 05/29/19 06/11/23 Nedra Welch MD [address] [place] [address] PCP - General Internal Medicine 06/12/23 documented as of this encounter
--- OUTSIDE RECORDS SUMMARY | 2025-03-19 08:57 | XMS_ITS | Clinical Summary ---
Author Organization [employer] Address [address] [facility] 7t [place] [address] Care Team Providers Care Swatch Paster Name Role Phone Nedra Welch MD Primary Care Provider [phone] Allergies No known active allergies Medications * This document contains information received from the source organization and may not represent a complete record from that organization. ascorbic acid (Vitamin C) 100 MG tablet Take 1 tablet by mouth Once daily. 2 Active Vit-Fe Fumarate-FA ( Vitamins) 28-0.8 MG tabletIndication s:Family Planning Take 1 tablet by mouth Once per day. 90 tablet 3 5 Active Additional Information Patient not taking.Reason: pt is not anymore, Reported on 03/10/2025 NIFEdipine XL (Procardia XL) 30 MG 24 hr tabletIndication s:Primary hypertension Take 1 tablet (30 mg) by mouth Once per day. Do not crush, chew, or split. 30 tablet 5 5 Active Fe Tabs 325 (65 Fe) MG EC tabletIndication s:Iron deficiency anemia due to chronic blood loss Take 1 tablet (325 mg) by mouth 3 (three) times a week. Take with 4 oz of orange juice. Do not crush, chew, or split. 30 tablet 3 5 Active amLODIPine (Norvasc) 10 MG tablet Take 1 tablet (10 mg) by mouth Once per day. 90 tablet 3 5 026 Active sucralfate (Carafate) 1 g tablet Take 1 tablet (1 g) by mouth before breakfast, before lunch, before evening meal, and at bedtime for 14 days. 56 tablet 025 Active fluconazole (Diflucan) 150 MG tablet Take 1 tablet (150 mg) by mouth 1 (one) time for 1 dose. 1 tablet 5 025 Active Problems Problem Noted Date Diagnosed Date [...] virus (HSV) infection 05/26/2022 Overview (05/26/2022): Per [facility] chart Severe pre-eclampsia 05/26/2022 Overview (05/26/2022): History of severe pre-eclampsia per [facility] chart; Resolved Problems Problem Noted Date Diagnosed Date Resolved Date Vaginal discharge during pre gnancy in first trimester 03/10/2025 03/10/2025 Encounters Date Type Department Care Team Description 03/10/2025 11:30 AM EDT Office Visit [facility] MEDICINE [address] [place] [address] Tammy Lobo MD Acute vaginitis (Primary Dx); Primary hypertension; Epigastric pain; Urine leukocytes 03/10/2025 Orders Only [facility] MEDICINE [address] [place] [address] Tammy Lobo MD 03/10/2025 Travel 03/09/[address] [facility] MEDICINE [address] [place] [address] Tammy Lobo MD CHART PREP 03/09/2025 Telephone [facility] MED & PEDS [address] [place] [address] Nedra Welch MD Nurse Triage 01/23/2025 Telephone [facility] MED & PEDS [address] [place] [address] Nedra Welch MD no show 01/08/2025 Travel 12/29/2024 Telephone [facility] [address] [place] [address] Nedra Welch MD 12/29/2024 Results Follow-Up [facility] MED & PEDS [address] [place] [address] Nedra Welch MD POCT Urine , Bacterial Vaginosis Panel, Chlamydia/N. Gonorrhoeae, PCR, Urine 12/29/2024 Orders Only [facility] MED [facility] PEDS [address] [place] [address] Nedra Welch MD 12/29/2024 Orders Only [facility] PED[facility] [address] [place] [address] Nedra Welch MD Early stage of (Primary Dx); Primary hypertension; Beta thalassemia trait 12/26/2024 11:15 AM EDT Office Visit [facility] MED [facility] PEDS [address] [place] [address] Nedra Welch MD Primary hypertension (Primary Dx); Iron deficiency anemia due to chronic blood loss; Early stage of ; Chronic vaginitis 12/26/2024 Travel 12/24/[address] [facility] MEDICINE [address] [place] [address] Nedra Welch MD Nurse Triage from Last [...] the past 12 months, has t he [employer], gas, oil or water company threatened to [...] Description 04/03/2025 10:00 AM EST Clinical Support [facility] MED & PEDS [address] [place] [address] 04/21/2025 9:00 AM EST Office Visit [facility] MED [facility] PEDS [address] [place] [address] Nedra Welch MD [address] [place] [address] Health Maintenance Due Date Last Done Comments [...] ORDERABLES Fin al Result [facility] [address] [place] [phone] * (ABNORMAL) POCT Urinalysis (03/10/2025 12:18 PM EDT) Color, UA Smolan Clarity, UA Clear Glucose, UA Negative Bilirubin, [...] Urine 12/26/2024 11:5 9 AM EDT Result [facility] Nedra Welch MD POINT OF CARE [...] 11:45 AM EDT 12/26/2024 2:17 PM EDT Result [facility] Nedra Welch MD LAB MICROBIOLOGY - GENERAL OR DERABLES Final Result [facility] [address] [place] [address] [phone] * THINPREP TIS PAP AND HPV mRNA E6/E7, CT/NG, TRICH (12/27/2021 2:09 PM EDT) Chlamydia trachomatis RNA, TMA, Urogenital NOT DETECTED NOT DETECTED [facility] Clinical Information: None given [facility] COMMENT SEE COMMENT [facility] Comment: The analytical performance characteristics of this assay, when used to test SurePath(TM) specimens have been determined by [employer]. The modifications have not been cleared or approved by the FDA. This assay has been validated pursuant to the CLIA regulations and is used for clinical purposes. For additional information, please refer to https://Classical Connection.Go Kin P[employer]/faq/CBN331 (This link is being provided for information/ [...] has been evaluated with computer assisted technology. [facility] SYSTEM Hospitalist Physician: SEE COMMENT [facility] Comment: SXA, CT(ASCP) CT screening location: [address] [address] HPV nRNA E6/E7 Not Detected Not Detected [facility] Comment: Methodology: Childcare Administrator-Mediated Amplification This assay detects E6/E7 viral messenger RNA (mRNA) from 14 high-risk HPV types (16,18,31,33,35,39,45,51,52,56,58,59,66,68). Cervical sources are required for HPV testing. If a vaginal source from a patient who has had a total hysterectomy with removal of cervix was submitted, please contact the testing laboratory for alternative testing options. For additional information, please refer to http://education.Go Kin Packs/faq/AHX095r9 (This link if provided for information/ educational purposes only.) Interpretation/Re sult: Negative for intraepithelial lesion or malignancy. [facility] LMP: 12/16/2021 [facility] Neisseria gonorrhoeae RNA, TMA, Urogenital NOT DETECTED NOT DETECTED [facility] Prev. BX: NONE GIVEN [facility] Prev. PAP: NONE GIVEN [facility] Review Hospitalist Physician: SEE COMMENT [facility] Comment: CMG, CT(ASCP) CT screening location: [place] [address] SOURCE: None given [facility] Statement Of Adequacy: SEE COMMENT [facility] Comment: Satisfactory for evaluation. Endocervical/transformation zone component present. Trichomonas vaginalis, QL, TMA, PAP Vial NOT DETECTED NOT DETECTED [facility] Comment: The analytical performance characteristics of this assay have been determined by [employer]. The modifications have not been cleared or approved by the FDA. This assay has been validated pursuant to the CLIA regulations and is used for clinical purposes. For additional information, please refer to http://Classical Connection.Go Kin Packs/ faq/Trichomonastma (This link is being provided for information/ educational purposes only.) 12/27/2021 2:09 PM EDT Esperanza LUI LAB PATHOLOGY ORDERABLES Final Result [facility] [address] * HEPATITIS C AB W/REFL TO HCV RNA, QN, PCR (10/18/2021 8:44 AM EDT) HEPATITIS C ANTIBODY NON-REACT LAINE NON-REACT LAINE [facility] INDEX 0.09 <1.00 [facility] Comment: HCV antibody was non-reactive. There is no laboratory evidence of HCV infection. In most cases, no further action is required. However, if recent HCV exposure is suspected, a test for HCV RNA (test code 38002) is suggested. For additional information please refer to http://Classical Connection.Go Kin Packs/faq/XDP41t0 (This link is being provided for informational/ educational purposes only.) 10/18/2021 8:44 AM EDT us Wei Fox MD HISTORICAL/NON ORD ERABLE LABS Final Result Performing Organization Address [facility] de Phone Number [facility] [address] [place] [address], * (ABNORMAL) LIPID PANEL, STANDARD (10/18/2021 8:44 AM EDT) [facility] Chol/HDLC Ratio 2.8 <5.0 (calc) [facility] Cholesterol, Total 129 <200 mg/dL [facility] HDL Cholesterol 46(L) > OR = 50 mg/dL [facility] LDL Cholesterol 67 mg/dL (calc) [facility] Comment: Reference range: <100 Desirable range <100 mg/dL for primary prevention; <70 mg/dL for patients with CHD or diabetic patients with > or = 2 CHD risk factors. LDL-C is now calculated using the Marielos calculation, which is a validated novel method providing better accuracy than the Friedewald equation in the estimation of LDL-C. Mynor SS et al. AZUL. 2013;310(19): 0730-7606 (http://education.[employer] BioEnergy/faq/PNN705) Non-HDL Cholesterol 83 <130 mg/dL (calc) [facility] Comment: For patients with diabetes plus 1 major ASCVD risk factor, treating to a non-HDL-C goal of <100 mg/dL (LDL-C of <70 mg/dL) is considered a therapeutic option. Triglycerides 79 <150 mg/dL [facility] 10/18/2021 8:44 AM EDT Wei Fox MD LAB BLOOD ORDERABL ES Final Result Performing Organization Address [facility] Co de Phone Number [facility] [address] [place] [address], * HIV AB/AG (05/29/2019 10:03 AM EST) [facility] HIV AG/AB NONREACTIVE NR [facility] [...] of detection of this assay. The [facility] HIV Ag/Ab Combo assay result and supplemental assay results should be interpreted in conjunction with the patient's clinical presentation, history and other laboratory results. If the results are inconsistent with clinical evidence, additional testing is suggested to confirm the result. 05/29/2019 10:0 3 AM EST us Wei Fox MD HISTORICAL/NON ORD ERABLE LABS Final Result [facility] [address] from Last 3 Months or Most Recently Relevant to Health Maintenance Insurance [address] [place], [place] [address] C[employer] Care Teams Swatch Paster Relationship Specialty Start Date End Date Nedra Welch MD [address] [place] [phone] PCP - General Internal Medicine 06/12/23
--- OUTSIDE RECORDS SUMMARY | 2025-03-19 08:57 | XMS_ITS | Clinical Summary ---
Author Organization [facility] ity Address [address] [place] [address] Care Team Providers Care Grades 9 12 Tutor Name Role Phone Sheila Avilez Primary Care [...] age to complete this topic Care Teams Grades 9 12 Tutor Relationship Specialty Start Date End Date Sheila Avilez DO [address] [place] [address] [place] [address] PCP - General 04/20/15
--- OUTSIDE RECORDS SUMMARY | 2025-03-19 08:57 | XMS_ITS | Encounter Summary ---
Author Organization [employer] Address [address] [facility] 7 [place] [address] Care Team Providers Care Change Consultant Name Role Phone Nedra Welch MD Primary Care Provider [phone] Reason for Visit * Reason Onset Date Comments Nurse Triage 03/09/2025 Encounter Details Date Type Department Care Team ([facility] st Contact Info) Description 03/09/2025 Telephone C [facility] [address] [place] [address] Nedra Welch MD [address] [place] [address] Nurse Triage Social History Tobacco Use Types [...] t he electric, gas, oil or water [employer] threatened to shut off services in your [...] her request 03/09/[address] Lobo at [facility] to evaluate vaginal discharge and stomach pain. [...] caller accepted this outcome. Contact pt at [phone] documented in this encounter Plan of Treatment Upcoming Encounters Date Type Department Care Team (Late st Contact Info) Description 04/03/2025 10:00 AM EST Clinical Support [facility] MED & PED[facility] [address] [place] [address] 04/21/2025 9:00 AM EST Office Visit [facility] [address] [place] [address] Nedra Welch MD [address] [place] [address] documented as of this encounter Visit Diagnoses Not on filedocumented in this encounter Additional Health Concerns Assessment Noted Time PHQ-9 Depression Total Score: 5 09/13/19 23 11:55 AM EDT documented as of this encounter Care Teams Change Consultant Relationship Specialty Start Date End Date Nedra Welch MD [address] [place] [address] PCP - General Internal Medicine 06/12/23 documented as of this encounter
[2025-03-19 14:12] LABS: Appearance Urine Clear; Glucose Urine UA Negative (Negative); PH 6.5 (5.0-9.0); Specific Gravity - Urine 1.020 (1.005-1.025); UMIC TRIGGER UACC YES
[2025-03-19 14:18] LABS: UACC Culture Trigger YES
== END 2025-03-19 08:31 | disposition home or self-care (01) ==
LOC: HO.CHCLDS 08:30
PROVIDERS: PCP Internal Medicine; Visit Provider Internal Medicine
DX: R82.998 Other abnormal findings in urine (principal)
CPT/HCPCS: 81001; 87086; 87147

== ENCOUNTER 2025-04-21 09:42 | Outpatient (REF) | payer MEDICAID, SELFPAY ==
[2025-04-21 14:25] LABS: MANUAL DIFF FLAG NO
[2025-04-21 14:32] LABS: Hematocrit 28.9 % (37.0-47.0); Hemoglobin 8.1 g/dl (12.0-16.0); Imm Gran Abs Auto 0.04 X10*3/uL (0.00-0.03); Imm Gran Pct Auto 0.4 % (0.0-0.4); Lymphocytes Absolute Auto 2.4 X10*3/uL (1.2-4.9); Mean Corpuscular HGB Conc 28.0 g/dl (31.0-35.0); Mean Corpuscular Hemoglobin 15.8 pg (27.0-33.0); Mean Corpuscular Volume 56.2 fL (80.0-98.0); NRBC Abs Auto 0.000 X10*3/uL (0.0-0.012); NRBC Pct Auto 0.0 /100WBC (0.0-0.2); Platelet Count 513 X10*3/uL (160-400); Red Blood Count 5.14 X10*6/uL (4.20-5.50); White Blood Count 10.0 X10*3/uL (4.8-10.8)
[2025-04-21 15:10] LABS: Alanine Aminotransferase 8 U/L (0-31); Albumin Level 4.3 g/dL (3.5-5.0); Alkaline Phosphatase 80 U/L (39-117); Anion Gap 9 (12-20); Aspartate Amino Transferase 24 U/L (5-31); Blood Urea Nitrogen 7 mg/dL (9-16); Calcium 9.4 mg/dL (8.4-10.2); Carbon Dioxide 24 mmol/L (22-29); Chloride 110 mmol/L (96-108); Estimated Glomerular Filt Rate > 60; Lipase 14 U/L (8-78); Potassium 3.8 mmol/L (3.3-5.1); Sodium 139 mmol/L (135-145); Total Protein 8.0 g/dL (6.5-8.0)
[2025-04-21 15:34] LABS: Folate 11.0 ng/mL (> or = 4.0); Vitamin B12 262 pg/mL (200-900)
== END 2025-04-21 09:43 | disposition home or self-care (01) ==
LOC: HO.CHCLDS 09:42
PROVIDERS: Visit Provider Pediatrics
DX: I10 Essential (primary) hypertension (principal); D50.0 Iron deficiency anemia secondary to blood loss (chronic); D56.3 Thalassemia minor; F32.A Depression, unspecified
CPT/HCPCS: 36415; 80048; 80076; 82306; 82607; 82746; 83690; 84443; 84702; 85025

== ENCOUNTER 2025-04-22 08:16 | Outpatient (REF) | payer MEDICAID, SELFPAY ==
[2025-04-22 16:36] LABS: Microalbum/Creatinine Ratio Ur 14.5 ug/mg cr (<30)
== END 2025-04-22 08:17 ==
LOC: HO.CHCLNP 08:16
PROVIDERS: Visit Provider Pediatrics
DX: D50.0 Iron deficiency anemia secondary to blood loss (chronic) (principal); D56.3 Thalassemia minor; I10 Essential (primary) hypertension; F32.A Depression, unspecified
CPT/HCPCS: 82043; 82570